=== PATIENT | male | born 1980 | race Caucasian/White ===

== ENCOUNTER 2017-04-29 17:29 | Emergency (ER) | payer OTHER ==
[2017-04-29] MEDS: DIPHTH/TET/ACEL PERTUSS (ADULT) 0.5 ML VIAL IM* (17:53)
[2017-04-29] MEDS: LIDOCAINE 2% (MDV) 20 ML INJ INJ (17:54)
== END 2017-04-29 18:50 | disposition home or self-care (01) ==
LOC: FTE 17:29
DX: S61.217A Laceration without foreign body of left little finger without damage to nail, initial encounter (principal); W22.8XXA Striking against or struck by other objects, initial encounter; Y92.000 Kitchen of unspecified non-institutional (private) residence as the place of occurrence of the external cause; Z23 Encounter for immunization
CPT/HCPCS: 12001; 90471; 90715; 99283-25

== ENCOUNTER 2017-05-05 10:42 | Emergency (ER) | payer OTHER ==
[2017-05-05] MEDS: TETRACAINE 0.5% 4 ML OPH LEFT EYE (12:17)
[2017-05-05] MEDS: FLUORESCEIN STRIP LEFT EYE (12:17)
[2017-05-05] MEDS: IBUPROFEN 600 MG TAB PO (12:21)
== END 2017-05-05 12:29 | disposition home or self-care (01) ==
LOC: FTE 10:42
DX: T15.02XA Foreign body in cornea, left eye, initial encounter (principal); X58.XXXA Exposure to other specified factors, initial encounter; Y92.9 Unspecified place or not applicable
CPT/HCPCS: 65220; 99283-25

== ENCOUNTER 2017-05-08 11:59 | Emergency (ER) | payer SELFPAY, OTHER | END 2017-05-08 12:00 | disposition left against medical advice (07) | LOC: E/R 11:59 | DX: Z53.21 Procedure and treatment not carried out due to patient leaving prior to being seen by health care provider (principal) ==